=== PATIENT | female | born 1955 | race Caucasian/White ===

== ENCOUNTER 2020-11-26 10:01 | Emergency (ER) | payer BC ==
[~2020-11-26 10:01] MED LIST: DAILY MULTIPLE1 T18 PO; L-TRYPTOPHAN500 MG PO; [UNRECOGNIZED DRUG - OTHER]; [UNRECOGNIZED DRUG - OTHER] PO
[2020-11-26] MEDS ORDERED: LEVOTHYROXIN0.075 MG PO (10:23)
[2020-11-26] MEDS ORDERED: PROAIR HFA0.09 MG/AC IH (10:23)
[2020-11-26 11:39] VITALS: BP 111/74
== END 2020-11-26 11:39 | disposition home or self-care (01) ==
LOC: ED 10:01
DX: M25.511 Pain in right shoulder (principal); E03.9 Hypothyroidism, unspecified; J45.909 Unspecified asthma, uncomplicated; Z79.890 Hormone replacement therapy; W01.0XXA Fall on same level from slipping, tripping and stumbling without subsequent striking against object, initial encounter; Y92.830 Public park as the place of occurrence of the external cause
CPT/HCPCS: J1885

== ENCOUNTER 2021-10-10 17:09 | Emergency (ER) | payer MEDICARE ==
[~2021-10-10] VITALS: Ht 157.5 cm; Wt 59.1 kg
[~2021-10-10 17:09] MED LIST changes: +LEVOTHYROXIN0.075 MG PO; +PROAIR HFA0.09 MG/AC IH
[2021-10-10 19:10] VITALS: BP 135/84
== END 2021-10-10 19:11 | disposition home or self-care (01) ==
LOC: ED 17:09
DX: S63.502A Unspecified sprain of left wrist, initial encounter (principal); E03.9 Hypothyroidism, unspecified; J45.909 Unspecified asthma, uncomplicated; Z79.890 Hormone replacement therapy; Z79.899 Other long term (current) drug therapy; W19.XXXA Unspecified fall, initial encounter; Y93.B9 Activity, other involving muscle strengthening exercises
CPT/HCPCS: 15975; A4570

== ENCOUNTER 2021-11-08 10:03 | Outpatient (RCR) | payer MEDICARE | END 2021-11-29 | disposition home or self-care (01) | LOC: OT | DX: M25.532 Pain in left wrist (principal) ==

== ENCOUNTER 2021-11-30 08:56 | Outpatient (RCR) | payer MEDICARE | END 2021-12-30 14:16 | disposition home or self-care (01) | LOC: OT 08:56 | DX: M25.532 Pain in left wrist (principal) ==